=== PATIENT | female | born 1985 | race Hispanic/Latino ===

== ENCOUNTER 2018-05-11 01:40 | Emergency (ER) | payer BC, OTHER ==
[2018-05-11] MEDS ORDERED: Sodium Chloride 0.9% 1,000 ML IV STA (02:47)
[2018-05-11 03:17] LABS: BASO # 0.1 K/uL (0.0-0.2); BASO % 0.8 % (0.0-2.0); EOS # 0.1 K/uL (0.0-0.7); EOS % 0.9 % (0.0-4.0); HEMOGLOBIN 13.4 g/dL (12.0-16.0); LYMPH # 3.4 K/uL (1.0-4.3); LYMPH % 35.7 % (20.0-40.0); MEAN CELL VOLUME 87.7 fl (81.0-99.0); MEAN CORPUSCULAR HGB CONC 34.3 g/dL (33.0-37.0); MEAN PLATELET VOLUME 8.3 fl (7.2-11.7); MONO # 0.7 K/uL (0.0-0.8); NEUT # 5.3 K/uL (1.8-7.0); NEUT % 55.6 % (50.0-75.0); NRBC % 0.1 % (0.0-0.0); RBC 4.45 Mil/uL (3.80-5.20); RED CELL DISTRIBUTION WIDTH 12.7 % (11.5-14.5); WHITE BLOOD COUNT 9.6 K/uL (4.8-10.8)
[2018-05-11 03:19] LABS: SQUAMOUS EPITHIAL 8 /hpf (0-5); URINE BACTERIA MOD (<OCC); URINE BILIRUBIN NEGATIVE (NEGATIVE); URINE BLOOD NEGATIVE (NEGATIVE); URINE CLARITY CLOUDY (Clear); URINE COLOR YELLOW (YELLOW); URINE GLUCOSE (UA) NEG (Normal); URINE LEUKOCYTE ESTERASE TRACE Leu/uL (Negative); URINE PROTEIN 30 mg/dL (NEGATIVE); URINE UROBILINOGEN 0.2-1.0 mg/dL (0.2-1.0)
[2018-05-11 03:22] LABS: BLOOD UREA NITROGEN 9 mg/dl (7-17); CALCIUM 9.2 mg/dL (8.4-10.2); GFR AFRICAN-AMERICAN > 60; GFR NON-AFRICAN AMERICAN > 60
--- NOTE | 2018-05-11 04:30 | ED PDOC ---
HPI: Back Time Seen by Provider: 05/11/18 02:22 Chief Complaint (Nursing): Dizziness/Lightheaded Chief Complaint (Provider): Dizziness/Lightheaded History Per: Patient History/Exam Limitations: no limitations Onset/Duration Of Symptoms: Days Current Symptoms Are (Timing): Still Present Additional Complaint(s): Kelly Burgess is a 32 year old female with a past medical history of chronic back pain who is presenting to the ED for complaints of dizziness, nausea, headaches, and fatigue onset s/p lumbar facet nerve block last week approximately five days ago. Since nerve ablation, patient states that back pain has moved from midline to left side and lower. She denies any urinary symptoms but is concerned she might have a urinary tract infection. Patient denies any cough, runny nose, sore throat, vomiting, or fevers. PMD: none provided Past Medical History Reviewed: Historical Data, Nursing Documentation, Vital Signs Vital Signs: Last Vital Signs Temp 98.8 F 05/11/18 02:08 Pulse 94 H 05/11/18 02:08 Resp 17 05/11/18 02:08 BP 142/96 H 05/11/18 02:08 Pulse Ox 98 05/11/18 02:08 - Medical History PMH: Fibromyalgia, Chronic Pain (back) - Surgical History Surgical History: No Surg Hx - Family History Family History: States: Unknown Family Hx - Social History Current smoker - smoking cessation education provided: No Alcohol: Social Drugs: Denies - Home Medications Home Medications: Ambulatory Orders Medication Instructions Recorded Cefdinir [Omnicef] 300 mg PO BID 5 Days #10 cap 05/11/18 Ondansetron ODT [Zofran ODT] 4 mg PO Q8 PRN #12 odt 05/11/18 - Allergies Allergies/Adverse Reactions: Allergies Allergy/AdvReac Type Severity Reaction Status Date / Time duloxetine [From Cymbalta] AdvReac FEVER Verified 05/11/18 02:13 sumatriptan AdvReac FATIGUE Verified 05/11/18 02:13 Review of Systems ROS Statement: Except As Marked, All Systems Reviewed And Found Negative Constitutional: Negative for: Fever ENT: Negative for: Nose Congestion, Throat Pain Respiratory: Negative for: Cough Gastrointestinal: Positive for: Nausea. Negative for: Vomiting Genitourinary Female: Negative for: Other (urinary symptoms) Musculoskeletal: Positive for: Back Pain Physical Exam - Reviewed Nursing Documentation Reviewed: Yes Vital Signs Reviewed: Yes - Physical Exam Appears: Positive for: Well, Non-toxic, No Acute Distress Head Exam: Positive for: ATRAUMATIC, NORMAL INSPECTION, NORMOCEPHALIC Skin: Positive for: Normal Color, Warm, DRY Eye Exam: Positive for: EOMI, Normal appearance, PERRL ENT: Positive for: Normal ENT Inspection Neck: Positive for: Normal, Painless ROM Cardiovascular/Chest: Positive for: Regular Rate, Rhythm. Negative for: Murmur Respiratory: Positive for: Normal Breath Sounds. Negative for: Respiratory Distress Gastrointestinal/Abdominal: Positive for: Normal Exam, Soft. Negative for: Tenderness Back: Positive for: Normal Inspection Extremity: Positive for: Normal ROM. Negative for: Pedal Edema, Deformity Neurologic/Psych: Positive for: Alert, Oriented. Negative for: Motor/Sensory Deficits - Laboratory Results Result Diagrams: 05/11/18 03:10 05/11/18 03:10 - ECG O2 Sat by Pulse Oximetry: 98 (RA) Pulse Ox Interpretation: Normal Medical Decision Making Medical Decision Making: Time: 2:46 A/P: --32 year old female with chronic back pain s/p recent nerve ablation presenting with dizziness and nausea --Differentials include but are not limited to: viral infection vs UTI vs pyelonephritis Plan: --BMP --CBC --IV Fluids --Reglan 10 mg IVPB --Toradol 30 mg IV --Urinalysis 630AM Patient is feeling much better, tolerating PO, vitals stable Advised to followup with her PMD at [facility] in 2 - 3 days Return precautions given Scribe Attestation: Documented by Kiah James, acting as a scribe for Royb Pulliam MD. Provider Scribe Attestation: All medical record entries made by the Scribe were at my direction and personally dictated by me. I have reviewed the chart and agree that the record accurately reflects my personal performance of the history, physical exam, medical decision making, and the department course for this patient. I have also personally directed, reviewed, and agree with the discharge instructions and disposition. Disposition - Clinical Impression Clinical Impression: Dizziness, UTI (urinary tract infection) - Disposition Referrals: [facility] [Outside] Disposition Time: 06:30 Condition: STABLE Prescriptions: Cefdinir [Omnicef] 300 mg PO BID 5 Days #10 cap Ondansetron ODT [Zofran ODT] 4 mg PO Q8 PRN #12 odt PRN Reason: Nausea/Vomiting Instructions: Urinary Tract Infections in Adults, Dizziness, Nonvertigo, (DC) Forms: [employer] (Citizen [place])
[2018-05-11] MEDS ORDERED: cefTRIAXone 2 GM in Sodium Chloride 0.9% 100 ML IVPB STA (04:48)
[2018-05-11 07:11] VITALS: BP 129/80; PULSE 84; RESP 16; TEMP 98.3; O2SAT 99
== END 2018-05-11 06:45 | disposition home or self-care (01) ==
LOC: H.ER 01:40
DX: R42 Dizziness and giddiness (principal); N39.0 Urinary tract infection, site not specified; M54.9 Dorsalgia, unspecified; M79.7 Fibromyalgia; G89.29 Other chronic pain
CPT/HCPCS: 80048; 81003; 81025; 85025; 96361; 96365; 96367; 96375; 99284; J0696; J1885; J2765; J7030